=== PATIENT | female | born 1935 | race Two or more races ===

== ENCOUNTER 2017-12-17 09:56 | Outpatient (CLI) | payer OTHER | END 2017-12-17 09:59 | disposition home or self-care (01) | LOC: SONOGRAMA 09:56 | DX: E04.2 Nontoxic multinodular goiter (principal) ==

== ENCOUNTER 2022-07-20 11:07 | Outpatient (CLI) | payer OTHER | END 2022-07-20 11:10 | disposition home or self-care (01) | LOC: SONOGRAMA 11:07 | PROVIDERS: ATTEND Pathology Anatomic Pathology & Clinical Pathology | DX: E04.1 Nontoxic single thyroid nodule (principal) ==